=== PATIENT | male | born 1975 | race Two or more races ===

== ENCOUNTER 2021-06-09 13:42 | Emergency (ER) | payer OTHER ==
--- NOTE | 2021-06-09 15:30 | EDM.PDOC ---
ED HPI GENERAL MEDICAL PROBLEM - General Chief Complaint: General Stated Complaint: WANTS COVID TEST Time Seen by Provider: 06/09/21 15:00 Source of Information: Reports: Patient, RN, RN Notes Reviewed History Limitations: Reports: No Limitations - History of Present Illness INITIAL COMMENTS - FREE TEXT/NARRATIVE: Jon is a 45 y/o male who presents to the ED via personal vehicle requesting a COVID test. The patient was informed by his employer he was in close contact yesterday to a colleague who tested positive for COVID today. The patient attests to a three-day history of headache, cough, sore throat, and sinus congestion. He denies fever, shaking chills, chest pain, shortness of breath, palpitations, abdominal pain, nausea, vomiting, or diarrhea. He has taken no m edications or performed any supportive cares for his symptoms. He is not vaccinated for COVID. - Related Data Allergies Allergy/AdvReac Type Severity Reaction Status Date / Time No Known Allergies Allergy Verified 06/09/21 14:40 Home Meds: Home Meds . [No Known Home Meds] 06/09/21 [History] Past Medical History - Past Health History Medical/Surgical History: Denies Medical/Surgical History HEENT History: Reports: None Cardiovascular History: Reports: None Respiratory History: Reports: None Gastrointestinal History: Reports: None Genitourinary History: Reports: None Musculoskeletal History: Reports: None Neurological History: Reports: None Psychiatric History: Reports: None Endocrine/Metabolic History: Reports: None Hematologic History: Reports: None Immunologic History: Reports: None Oncologic (Cancer) History: Reports: None Dermatologic History: Reports: None - Infectious Disease History Infectious Disease History: Reports: None - Past Surgical History Head Surgeries/Procedures: Reports: None Social & Family History - Family History Family Medical History: Unobtainable - Tobacco Use Tobacco Use Status *Q: Never Tobacco User - Caffeine Use Caffeine Use: Reports: Coffee - Recreational Drug Use Recreational Drug Use: No ED ROS GENERAL - Review of Systems Review Of Systems: Comprehensive ROS is negative, except as noted in HPI. ED EXAM, GENERAL - Physical Exam Exam: See Below Exam Limited By: No Limitations General Appearance: Alert, No Apparent Distress Eye Exam: Bilateral Eye: EOMI, Normal Inspection, PERRL (3mm) Ears: Normal External Exam, Normal Canal, Hearing Grossly Normal, Normal TMs Ear Exam: Bilateral Ear: Auricle Normal, Canal Normal, TM normal Nose: Normal Inspection, Normal Mucosa, No Blood Throat/Mouth: Normal Inspection, Normal Oropharynx, Normal Voice, No Airway Compromise Head: Atraumatic, Normocephalic Neck: Normal Inspection, Supple, Non-Tender, Full Range of Motion. No: Lymphadenopathy (L), Lymphadenopathy (R) Respiratory/Chest: No Respiratory Distress, Lungs Clear, Normal Breath Sounds, No Accessory Muscle Use, Chest Non-Tender Cardiovascular: Normal Peripheral Pulses, Regular Rate, Rhythm, No Gallop, No Murmur, No Rub GI/Abdominal: Normal Bowel Sounds, Soft, Non-Tender, No Distention, No Abnormal Bruit, No Mass, Pelvis Stable Back Exam: Normal Inspection, Full Range of Motion Extremities: Normal Inspection, Normal Range of Motion, Normal Capillary Refill Neurological: Alert, Oriented, CN II-XII Intact, Normal Cognition, Normal Gait, No Motor/Sensory Deficits Psychiatric: Normal Affect, Normal Mood Skin Exam: Warm, Dry, Intact, Normal Color, No Rash. No: Cyanosis, Ecchymosis, Erythema, Jaundice, Mottled, Pallor Lymphatic: No Adenopathy Course - Vital Signs Last Recorded V/S: Last Vital Signs Temp 98.0 F 06/09/21 14:41 Pulse 82 06/09/21 14:41 Resp 18 06/09/21 14:41 BP 156/98 H 06/09/21 14:41 Pulse Ox 98 06/09/21 14:41 - Orders/Labs/Meds Labs: Laboratory Tests 06/09/21 Range/Units 15:27 SARS-CoV-2 RNA ([facility]) Negative (NEGATIVE) - Re-Assessments/Exams Free Text/Narrative Re-Assessment/Exam: 06/09/21 COVID sent given symptoms. COVID incubation and need for self-isolation for 10 days following COVID negative reviewed with patient. Discussed indications for retesting. Red flag signs and symptoms which would warrant immediate reevaluation reviewed. Patient verbalized understanding and agreement with the plan of care. Departure - Departure Time of Disposition: 15:26 Disposition: Home, Self-Care 01 Condition: Good Clinical Impression: Cough, Exposure to COVID-19 virus - Discharge Information *PRESCRIPTION DRUG MONITORING PROGRAM REVIEWED*: Not Applicable *COPY OF PRESCRIPTION DRUG MONITORING REPORT IN PATIENT BRYAN: Not Applicable Instructions: 10 Things You Can Do to Manage Your COVID-19 Symptoms at Home - [facility] (04/05/2021), Frequently Asked Questions About COVID-19 Vaccination - [facility] (03/05/2021), COVID-19: What to Do If You Are Sick- [facility] (12/05/2020) Forms: ED Department Discharge Additional Instructions: 1.) Follow [facility] Department guidelines regarding COVID-19 quarantine. 2.) You may take ibuprofen (Motrin/Advil) 400-800mg every six hours, for headache or fever. You may also take acetaminophen (Tylenol) 650-1000mg every six hours, for fever and headache. You may stagger these medications so you are taking a dose every three hours. 3.) You may take an [id number] cough suppressant for cough.
== END 2021-06-09 15:37 | disposition home or self-care (01) ==
LOC: DL.ED 13:42
DX: R05 Cough (principal); Z20.822 Contact with and (suspected) exposure to COVID-19
CPT/HCPCS: 99282; 99283; U0002